=== PATIENT | female | born 1940 ===

== ENCOUNTER 2025-02-28 15:20 | Inpatient (IN) | payer MEDICARE, OTHER, SELFPAY ==
[2025-02-28] VITALS (11 sets, daily range): BP systolic 101–141; BP diastolic 41–73; BMI 36.3
--- NOTE | 2025-02-28 12:37 | ED.GENMED ---
History of Present Illness
<Flora Rivas PA-C - Last Filed: 02/28/25 18:18>
General
Chief Complaint: Heart Rate Problem
Source: patient and family
Exam Limitations: dementia
Time Seen by Provider: 02/28/25 12:27
Nursing documentation reviewed up to this point in time: agreed with
History of Present Illness
History of Present Illness:
Patient is an 84-year-old female with history of brain CA, epilepsy who presents to the emergency department for pacemaker placement. Patient follows with cardiology at [facility] where she has been wearing a Holter monitor given recent fatigue.
Apparently holter monitor revealed a 30 second sinus pause. It is believed that this occurred while patient was sleeping. Patient was referred to the emergency department by cardiology, Dr. Spicer for pacemaker placement.
Patient denies any chest pain or shortness of breath. She has not had any syncopal events. Her main complaint is significant fatigue.
Patient has history of epilepsy and is compliant with Keppra.
Patient is German-speaking however daughter is assisting with translation.
Review of Systems
<Flora Rivas PA-C - Last Filed: 02/28/25 18:18>
Review of Systems
Allergies reviewed?: Yes
All Other Systems: ROS reviewed and negative except as documented in HPI and ROS
Phy Exam
<Flora Rivas PA-C - Last Filed: 02/28/25 18:18>
Physical Exam
Physical Exam:
Vitals: Bradycardic. Otherwise stable vital signs. Afebrile
General: Patient is well appearing, no acute distress
Skin: Warm and dry, no rashes or lesions
Head: Normocephalic, atraumatic
Eyes: Sclera nonicteric. .
Throat: Protecting airway
Neck: Normal ROM, no cervical spine tenderness, no meningismus
Cardiac: bradycardic, normal rhythm, no murmurs. No sinus pause noted on monitor in ED.
Pulm: Normal respiratory effort, no wheezes, rales, rhonchi heard on exam
Abdomen: No abdominal tenderness.
Extremities: No evidence of cyanosis or edema. 2+ palpable and equal distal pulses bilaterally
Neuro: AAOx3. Grossly intact.
Psychiatric: Normal affect.
Course
<Flora Rivas PA-C - Last Filed: 02/28/25 18:18>
Orders/Labs/Results
Orders:
Orders
02/28/25 12:09
EKG [Electrocardiogram (*1)] Urgent
Reason for Study: Bradycardia / Tachycardia
EKG- Treatment ONCE
02/28/25 13:02
Complete Blood Count/With Diff Urgent
Comprehensive Metabolic Panel Urgent
Magnesium Urgent
PTT Urgent
Prothrombin Time Urgent
TSH Reflex To Free T4 Urgent
02/28/25 14:07
Admit/Transfer Patient As Directed
Co-Sign Provider:
Level of Care: Inpatient admission
Assign to:: IVU
Physician / Group: htay
Diagnosis: 30 secs pause on Holter - asymptomatic Sinus lorenzo otherwise nl EKG
Reason for Hospitalization: 30 secs pause on Holter - asymptomatic
Sinus lorenzo otherwise nl EKG
Expected length of stay greater than two midnights?: Yes
ELOS- Estimated Length of Stay in days: 2
I certify the patient meets the requirements for IP care: Yes
02/28/25 14:08
Code Status As Directed
Resuscitation Status: Full Code
Abnormal Lab Results
02/28/25
13:02
MCHC 32.2 L g/dL
(33.0-37.0)
Carbon Dioxide 32 H mmol/L
(22-30)
Total Protein 5.7 L g/dl
(6.3-8.2)
02/28/25 13:02
02/28/25 13:02
Vital Signs
Initial and Last Documented VS:
Initial Vital Signs
Temp Pulse Resp BP Pulse Ox
97.5 F 53 18 126/57 96
02/28/25 12:15 02/28/25 12:15 02/28/25 12:15 02/28/25 12:15 02/28/25 12:15
Last Documented Vital Signs
Temp Pulse Resp BP Pulse Ox
97.5 F 50 17 141/73 98
02/28/25 12:15 02/28/25 15:00 02/28/25 15:00 02/28/25 15:00 02/28/25 15:00
<Shahram Bhakta, DO - Last Filed: 02/28/25 12:52>
Orders/Labs/Results
Orders:
Orders
02/28/25 12:09
EKG [Electrocardiogram (*1)] Urgent
Reason for Study: Bradycardia / Tachycardia
EKG- Treatment ONCE
02/28/25 13:02
Complete Blood Count/With Diff Urgent
Comprehensive Metabolic Panel Urgent
Magnesium Urgent
PTT Urgent
Prothrombin Time Urgent
TSH Reflex To Free T4 Urgent
02/28/25 14:07
Admit/Transfer Patient As Directed
Co-Sign Provider:
Level of Care: Inpatient admission
Assign to:: IVU
Physician / Group: htay
Diagnosis: 30 secs pause on Holter - asymptomatic Sinus lorenzo otherwise nl EKG
Reason for Hospitalization: 30 secs pause on Holter - asymptomatic
Sinus lorenzo otherwise nl EKG
Expected length of stay greater than two midnights?: Yes
ELOS- Estimated Length of Stay in days: 2
I certify the patient meets the requirements for IP care: Yes
02/28/25 14:08
Code Status As Directed
Resuscitation Status: Full Code
Abnormal Lab Results
02/28/25
13:02
MCHC 32.2 L g/dL
(33.0-37.0)
Carbon Dioxide 32 H mmol/L
(22-30)
Total Protein 5.7 L g/dl
(6.3-8.2)
02/28/25 13:02
02/28/25 13:02
Vital Signs
Initial and Last Documented VS:
Initial Vital Signs
Temp Pulse Resp BP Pulse Ox
97.5 F 53 18 126/57 96
02/28/25 12:15 02/28/25 12:15 02/28/25 12:15 02/28/25 12:15 02/28/25 12:15
Last Documented Vital Signs
Temp Pulse Resp BP Pulse Ox
97.5 F 50 17 141/73 98
02/28/25 12:15 02/28/25 15:00 02/28/25 15:00 02/28/25 15:00 02/28/25 15:00
<Flora Rivas PA-C - Last Filed: 02/28/25 18:18>
MDM/Problems Addressed
Differential Diagnosis Includes:
Not limited to: Sinus arrhythmia, sinus pause, heart block, hypothyroidism, electrolyte abnormality, etc.
MDM/Problems Addressed:
84-year-old female presenting with significant fatigue as well as sinus pause seen on outpatient Holter monitoring. She was referred for pacemaker placement. No chest pain, shortness of breath, dizziness, or syncopal episodes. Vitals and exam as
above.
ED plan: Check basic labs, EKG, place pads. Will discuss with cardiology.
Update: EKG with sinus bradycardia and no acute ischemic changes. Labs unremarkable. Case discussed with cardiology. Will admit to hospitalist service with cardiology consult for pacemaker placement either today or tomorrow. Patient accepted to
hospitalist service in stable condition.
Chronic conditions affecting care:
Epilepsy
Acute Exacerbation and/or Progression of Chronic Illness:
N/A
<Flora Rivas PA-C - Last Filed: 02/28/25 18:18>
*Pulse Oximetry
SaO2: 96
Oxygen Mode of Delivery: Room air
Patient hypoxic: no
*EKG
Interpreted by ED Provider?: Yes
EKG Intrepretation Date: 02/28/25
Interpretation: normal
Comparison EKG: no comparison EKG present
Heart Rate: 58
Rate: bradycardiac
Rhythm: sinus
[place]: normal axis
Interval: normal QT interval
QRS Pattern: normal QRS
Ischemia: no ischemia
*Saddle Stitch Operator Interpretation
Rate: bradycardiac
Interpretation: abnormal
Heart Rate: 50
Rhythm: sinus
*Critical Care Note
Total Time (30-74mins, 75-104mins- exclusive of procedures): Not Applicable
<Flora Rivas PA-C - Last Filed: 02/28/25 18:18>
Patient Management
Discussion with other providers: Hospitalist and Painter Supervisor (Case discussed with cardiology)
Escalation/DeEscalation of care consider admission/obs:
Admit to hospitalist service with cardiology consult for pacemaker placement
ED Attending Note
<Flora Rivas PA-C - Last Filed: 02/28/25 18:18>
-
Portions of this chart may have been created with voice recognition software.� Occasional wrong word or��sound alike� substitutions may have occurred due to the inherent limitations of voice recognition software.
<Shahram Bhakta DO - Last Filed: 02/28/25 12:52>
ED Attending Note
Patient seen and examined by attending physician: Yes
I performed the substantive portion of visit, reviewed & personally made and approve the management plan that is documented in note by myself or JANNA.: Yes
ED Attending Note:
I have seen and evaluated the patient with a [id number] encounter. I have spoken to the advance practicer provider and involved in the medical history, the physical exam, medical decision making.
Evaluation and management service: agree unless noted differently below.
Results interpretation: agree unless noted differently below.
Focused HPI: 84-year-old female sent in from her doctor's office when Holter monitor recorded significant pauses. Cardiology aware
Physical exam: Sitting in bed comfortably. Bradycardic
Medical Decision Making: ZOLL pads placed. Left cardiology evaluate for pacemaker placement
Discharge Plan
Departure
Patient Disposition: Admit
Date of Disposition: 02/28/25
Time of Disposition: 12:53
Presentation/result/management discussed w/ accepting MD/DO: Hospitalist
Discharge Problem:
Sinus pause
Interventions
Interventions:
*Risk Screen - Suicide Last Done: 02/28/25 12:20
*General Assessment Last Done: 02/28/25 13:00
*Neglect/Abuse Screening Last Done: 02/28/25 12:20
*ED- Fall Risk Assessment Last Done: 02/28/25 13:00
ED- Cardiac Assessment Last Done: 02/28/25 13:00
ED- Pulmonary Assessment Last Done: 02/28/25 13:00
[2025-02-28 13:27] LABS: Hematocrit 42.5 % (37.0-47.0); Hemoglobin 13.7 g/dL (12.0-16.0); Mean Corp Hgb Conc. 32.2 g/dL (33.0-37.0); Mean Corpuscular Volume 91.4 fL (81.0-99.0); Nucleated Red Blood Cells % 0 %; Platelet Count 149 10^3/uL (130-400); Red Cell Dist. Width 12.9 % (11.5-14.5)
[2025-02-28 13:40] LABS: INR 1.03; PT 14.0 Sec (11.4-14.6)
[2025-02-28 13:41] LABS: APTT 26.2 Sec (23.4-35.0)
[2025-02-28 13:43] LABS: ALT (SGPT) 14 U/L (0-35); AST (SGOT) 21 U/L (14-36); Albumin 3.6 g/dl (3.5-5.0); Alkaline Phosphatase 62 U/L (38-126); Blood Urea Nitrogen 16 mg/dl (7-17); Calcium 8.9 mg/dl (8.4-10.2); Carbon Dioxide 32 mmol/L (22-30); Chloride 105 mmol/L (98-107); Estimated Creatinine Clearance 50 ml/min; Glucose 83 mg/dl (70-99); Magnesium 2.2 mg/dl (1.6-2.3); Potassium 4.5 mmol/L (3.5-5.1); Sodium 139 mmol/L (135-145); Total Protein 5.7 g/dl (6.3-8.2); eGFR > 60.00
--- NOTE | 2025-02-28 13:50 | CON.CAR ---
Addendum entered and electronically signed by Juancarlos Spicer MD 02/28/25 17:01:
I specifically discussed with the daughter a left-sided pacemaker implantation as she has had right sided breast cancer and brain cancer. She did not have a port in the left side. As such as she is right-handed we will place a left-sided
dual-chamber pacemaker. Discussed 1000 risk of LA stroke and a 1% risk of pneumothorax tamponade infection or bleeding. I did time to answer all of daughter's questions. As the patient is Albanian only speaking we will need language line
tomorrow for informed consent. The daughter told me that she can perform as the claims manager.
Addendum entered and electronically signed by Juancarlos Spicer MD 02/28/25 17:00:
Patient seen and examined
Discussed with Dr. Aburto by text
Agree with VP PURCHASING note and assessment
Agree with VP PURCHASING plan
Her longest pause of 30 seconds occurred 2 weeks ago on 02/10/2025 associated with presumed loss of consciousness
Her daughter is both Albanian and Tanzanian speaking and the patient is Albanian only speaking.
I communicated to the daughter details of pacemaker implantation and timing either with my colleagues Dr. Lerma or Dr. Boyer tomorrow. We will feed her this afternoon and keep her n.p.o. after midnight for pacemaker implantation tomorrow.
Exam:
As per VP PURCHASING note
Alert and x 3
JVP 6
Cor regular
Lungs clear
No extremity edema
Impression:
30 sec, 16sec, 12 sec pauses on recent holter monitor, all occurred on 02/10/2025 in am
h/o syncope
brain cancer s/p tumor resection 02/2023 at [facility]
R breast cancer diagnosed 2023, on Tamoxifen
HTN
SOB
dizziness
dementia
seizure d/o on Keppra
Previous cardiovascular testing:
Echocardiogram 02/15/2025: Normal LV/RV size and function, LVEF 55 to 60%, mild MR
Zio monitor 02/01/2025 - 02/15/2025: Average heart rate 60 bpm, range 39 to 167 bpm. Of note, 5 pauses occurred, longest pause 33.5 seconds on 02/10/2025 at 07 56, also had 16-second pause on 02/10/2025 at 09 51, and 12-second pause on 02/10/2025 at 09
55
Monitor also with 7 beat run NSVT
Zio monitor 02/17/2024: Sinus rhythm average heart rate 62, range 41 to 158 bpm, first-degree AV block present, 14 runs of SVT longest 10 beats
Plan:
-pacemaker implantation tomorrow 03/01/2025
-NPO after MN
-admit to IVU
-keep Zoll pads in place
-echo 02/15/2025 with nl LV/RV fxn
-not on AV gloria blocking agents
-keep in bed
-continue telemetry monitoring
Original Note:
Consultation
Consultation Request
Date/Time Consultation Requested: 02/28/2025
Date/Time Consultation Performed: 02/28/2025
Requesting Provider: Flora Rivas PA-C
Performing Provider: ADEOLA Yoder for Juancarlos Spicer MD
Reason for Consultation: 30 second pause on holter monitor, pacemaker advised
Medical History
-
Chief Complaint: 30 sec pause on holter monitor
History of Present Illness:
84-year-old female referred to [facility] ED today due to recent detection of 30 second pause on 2-week Holter monitor. Patient follows with Dr. Noé Aburto, convenience recycle center tech at [facility]. She was seen in January 2025 with
concerns for dizziness, fatigue, and hypotension. 2-week Holter monitor and echocardiogram were ordered. Patient received call from Dr. Aburto today advising that she had 30 second pause on monitor and advised to come to ED for pacemaker
implantation. Patient does not speak Tanzanian and is accompanied by her daughter who translates. Monitor was placed 02/01/2025 and has been off for at least a week.
Patient denies syncope while wearing the monitor. Pt/daughter told that pause occurred at 715 am while pt was asleep.
Review of Zio monitor results shows a 33.5-second pause at 0756 on 02/10/2025 and 16-second pause on at 0955.
She has a past medical history of brain tumor status post surgery in 2022, seizures, breast cancer, hypertension, syncope.
She has had syncope in the past prior to being diagnosed with a brain tumor in 2022. She was operated on at [facility] and her daughter tells me the tumor was malignant but had not spread and she did not require radiation or chemo.
She had 4 syncopal episodes since the brain surgery, last in August 2024. She was evaluated by neurology and had an EEG and brain MRI. There was consideration for a Linq device if syncope not thought to be neurologic in origin. She was
evaluated by neurology at [facility] and antiseizure medications were increased. She has not had loss of consciousness since increase in medications.
She has been subsequently diagnosed with right-sided breast cancer about a year ago and is on hormonal therapy with tamoxifen. She has not required chemo, radiation, or mastectomy.
Patient denies shortness of breath, chest pain, palpitations, edema, PND, orthopnea. No falls or recent syncopal episodes.
ED evaluation: EKG sinus bradycardia 50 bpm, QTc 422 ms
Telemetry personally reviewed: Sinus bradycardia 50s
Labs: BUN/creatinine 16/0.8, NA 139, K4.5, mag 2.2, glucose 83, hemoglobin 13.7, platelets 149, WBC 4.9
Past Medical History
Past Medical History: Other (As above)
Past Surgical History: Other (Brain tumor resection 03/11/2023 at [facility])
Social History
Tobacco: Non-Smoker
Alcohol: None
Drug: None
Living: With Family
Family History
Family History: Other (Mother with hypertension, heart disease, cancer)
Allergies / Home Medications
Allergy/AdvReac Type Severity Reaction Status Date / Time
No Known Allergies Allergy Verified 02/28/25 12:18
�Medication �Instructions �Recorded �Confirmed �Type
cholecalciferol (vitamin D3) 25 25 mcg PO DAILY 02/28/25 02/28/25 History
mcg (1,000 unit) tablet (Vitamin
D3)
donepezil 10 mg tablet 10 mg PO HS 02/28/25 02/28/25 History
furosemide 40 mg tablet (Lasix) 40 mg PO DAILY 02/28/25 02/28/25 History
levetiracetam 750 mg tablet 750 mg PO DAILY 02/28/25 02/28/25 History
(Keppra)
levocetirizine 5 mg tablet (Xyzal) 5 mg PO DAILY 02/28/25 02/28/25 History
levothyroxine 50 mcg tablet 50 mcg PO DAILY 02/28/25 02/28/25 History
(Synthroid)
potassium chloride 20 mEq 20 meq PO DAILY 02/28/25 02/28/25 History
tablet,extended release
tamoxifen 20 mg tablet 20 mg PO DAILY 02/28/25 02/28/25 History
Review of Systems
-
Unable to obtain full review of systems at this time due to: Dementia
History Source: Family
All other systems: Negative unless noted
Physical Exam
Vital Signs
Temp Pulse Resp BP Pulse Ox
97.5 F 53 18 126/57 96
02/28/25 12:15 02/28/25 12:15 02/28/25 12:15 02/28/25 12:15 02/28/25 12:38
GEN: No distress, awake, Ox3
HEENT: supple, anicteric, mmm
LUNGS: CTA, no wheezes/rales
CV: Reg, S1/S2, no murmur
ABD: soft, BS+, NT/ND
EXT: No edema
NEURO: Gross non-focal
SKIN: No rash
Lab Results
02/28/25 13:02
02/28/25 13:02
Impression / Plan
-
Primary care physician: Morgan Rojo
Primary convenience recycle center tech: Noé Aburto
Impression:
30 sec, 16sec, 12 sec pauses on recent holter monitor, all occurred on 02/10/2025 in am
h/o syncope
brain cancer s/p tumor resection 02/2023 at [facility]
R breast cancer diagnosed 2023, on Tamoxifen
HTN
SOB
dizziness
dementia
seizure d/o on Keppra
Previous cardiovascular testing:
Echocardiogram 02/15/2025: Normal LV/RV size and function, LVEF 55 to 60%, mild MR
Zio monitor 02/01/2025 - 02/15/2025: Average heart rate 60 bpm, range 39 to 167 bpm. Of note, 5 pauses occurred, longest pause 33.5 seconds on 02/10/2025 at 07 56, also had 16-second pause on 02/10/2025 at 09 51, and 12-second pause on 02/10/2025 at 09
55
Monitor also with 7 beat run NSVT
Zio monitor 02/17/2024: Sinus rhythm average heart rate 62, range 41 to 158 bpm, first-degree AV block present, 14 runs of SVT longest 10 beats
Plan:
-pacemaker implantation tomorrow 03/01/2025
-NPO after MN
-admit to IVU
-keep Zoll pads in place
-echo 02/15/2025 with nl LV/RV fxn
-not on AV gloria blocking agents
-keep in bed
-continue telemetry monitoring
Data Reviewed
-
EKG: Tracing Personally Visualized and interpreted
Medical Tests (Nuc Med, Echo etc): Image Personally Visualized and interpreted
Old Records: Requested and Reviewed
--- NOTE | 2025-02-28 13:55 | HPS.HSE ---
Family Physician
-
Family Physician: Morgan Rojo
Chief Complaint
-
30 sec pauses on Holter
History of Present Illness
HPI
84F Taiwanese speaker HX Dementia, HX Brain tumor , Sz disorder , on Holter for 2 weeks, sent in by Dr cooper Heat Sealing Machine Operator ( P card is at [facility]) due to 30 pause seen on holter monitor - sent for pacemaker placement.
- denied complaints
- 02/15/25 Nl LVEF, No significant valvular abnormality.
Medical History
Past Medical History
Past Medical History: Reports Dementia, HTN, Hypothyroidism, Seizures and Other (HX Brain tumor )
Past Surgical History: Reports Other ( dementia )
Social History
Unable to obtain full social history at this time due to: Dementia
Family History
Family History: Not pertinent
Allergies / Home Medications
Allergies reflects when Allergies were last updated in [facility].
Home Medications with original date entered in [facility]
Allergy/Medication List:
Allergies
Allergy/AdvReac Type Severity Reaction Status Date / Time
No Known Allergies Allergy Verified 02/28/25 12:18
Home Medications
cholecalciferol (vitamin D3) 25 mcg (1,000 unit) tablet (Vitamin D3) 25 mcg PO DAILY 02/28/25
donepezil 10 mg tablet 10 mg PO HS 02/28/25
furosemide 40 mg tablet (Lasix) 40 mg PO DAILY 02/28/25
levetiracetam 750 mg tablet (Keppra) 750 mg PO DAILY 02/28/25
levocetirizine 5 mg tablet (Xyzal) 5 mg PO DAILY 02/28/25
levothyroxine 50 mcg tablet (Synthroid) 50 mcg PO DAILY 02/28/25
potassium chloride 20 mEq tablet,extended release 20 meq PO DAILY 02/28/25
tamoxifen 20 mg tablet 20 mg PO DAILY 02/28/25
Review of Systems
-
Constitutional: Reports No Symptoms
EENT: Reports No Symptoms
Respiratory: Reports No Symptoms
Cardiac: Reports See HPI
Abdomen/GI: Reports No Symptoms
: Reports No Symptoms
Musculoskeletal: Reports No Symptoms
Skin: Reports No Symptoms
Neurological: Reports No Symptoms
Endocrine: Reports No Symptoms
Hematologic/Lymphatic: Reports No Symptoms
Psych: Reports No Symptoms
Physical Exam
Vital Signs
Vital Signs
Temp Pulse Resp BP Pulse Ox
97.5 F 53 18 126/57 96
02/28/25 12:15 02/28/25 12:15 02/28/25 12:15 02/28/25 12:15 02/28/25 12:38
Physical Exam
General: Conversant
HEENT: NormoCephalic and Anicteric
Respiratory: Clear
Cardiac: S1/S2 and Bradycardia
Breast: Deferred by me
GI: Soft, Non Tender and Non Distended
Rectal: Deferred by Provider
Genito-urinary: Deferred by me
Musculoskeletal: No Edema
Skin: Warm and Dry
Neuro: Awake and Alert
Laboratory Results
-
02/28/25 13:02
02/28/25 13:02
Laboratory Results
PT 14.0 Sec (11.4-14.6) 02/28/25 13:02
INR 1.03 02/28/25 13:02
APTT 26.2 Sec (23.4-35.0) 02/28/25 13:02
Total Bilirubin 0.8 mg/dl (0.2-1.3) 02/28/25 13:02
AST 21 U/L (14-36) 02/28/25 13:02
ALT 14 U/L (0-35) 02/28/25 13:02
Alkaline Phosphatase 62 U/L (38-126) 02/28/25 13:02
Data Reviewed
-
Medical Tests (Nuc Med, Echo, EKG etc): Report Reviewed by me
Lab Data: Labs Reviewed by me
Impression/Plan
-
Vital Signs
Temp Pulse Resp BP Pulse Ox
97.5 F 53 18 126/57 96
02/28/25 12:15 02/28/25 12:15 02/28/25 12:15 02/28/25 12:15 02/28/25 12:38
Abnormal Lab Results
02/28/25
13:02
MCHC 32.2 L
Carbon Dioxide 32 H
Total Protein 5.7 L
Relevant Data
EKG
SINUS BRADYCARDIA
OTHERWISE NORMAL ECG
NO PREVIOUS ECGS AVAILABLE
02/15/25 TTE
Normal LV and RV size and function.
No significant valvular abnormality.
NO PRIOR hospitalist admission:
ASSESSMENT & PLAN
30 secs pause on Holter - asymptomatic
Sinus lorenzo otherwise nl EKG
02/15/25 TTE- Normal LV and RV size and function.
Hemodynamically stable
- For PPM
- NPO after MN
- IVU monitor
- fall precaution
- [facility] card consult
Hypothyroid
- check TSH
- c/w OP LT4
Benign HTN
- c/w PRODUCTION ESTIMATOR Frusemide
HX Brain Tumor
SZ disorder ?
- c/w PRODUCTION ESTIMATOR Keppra
Dementia
Taiwanese speaker
Language barrier
- at risk for delirium
- On Donepezil
DVT Px: SCD
Full Code:
IVU
[2025-02-28] MEDS: ARICEPT 10 MG PO (21:54)
[2025-03-01] VITALS (11 sets, daily range): BP systolic 118–143; BP diastolic 56–73; BMI 35.4
--- NOTE | 2025-03-01 03:23 | PTCARENOTE ---
Pt admitted to 2251 from ED at 2130, confused, Marshallese speaking, daughter staying with pt overnight. Pt SB on the monitor, HR 45-60's. denies CP, dizziness or SOB. BP stable. Bed alarm in place. Call helm within reach. Pt oriented to unit and call
light. Admission questioners completed.
[2025-03-01 05:04] LABS: Hematocrit 41.7 % (37.0-47.0); Hemoglobin 13.9 g/dL (12.0-16.0); Mean Corp Hgb Conc. 33.3 g/dL (33.0-37.0); Mean Corpuscular Volume 88.9 fL (81.0-99.0); Platelet Count 142 10^3/uL (130-400); Red Cell Dist. Width 12.7 % (11.5-14.5)
[2025-03-01 05:28] LABS: Blood Urea Nitrogen 16 mg/dl (7-17); Calcium 8.5 mg/dl (8.4-10.2); Carbon Dioxide 27 mmol/L (22-30); Chloride 108 mmol/L (98-107); Estimated Creatinine Clearance 58 ml/min; Glucose 84 mg/dl (70-99); INR 1.06; PT 14.3 Sec (11.4-14.6); Potassium 4.3 mmol/L (3.5-5.1); Sodium 139 mmol/L (135-145); eGFR > 60.00
[2025-03-01] MEDS: SYNTHROID 50 MCG PO (06:50)
[2025-03-01] MEDS: KEPPRA 750 MG PO (07:47)
[2025-03-01] MEDS: KCL 20 MEQ PO (07:48)
[2025-03-01] MEDS: NOLVADEX 20 MG PO (07:48)
--- NOTE | 2025-03-01 09:08 | PTCARENOTE ---
pt off unit for ppm. daughter notified of plan of care and verbalized understanding.
--- NOTE | 2025-03-01 11:09 | ITS.CL.PACE ---
Research Program Internship - Pacemaker Implant
Pacemaker Implant
Procedure Report:
Date of Procedure: March 01, 2025.
Procedure: Pacemaker Implantation. Left upper extremity venogram.
Indication: The pacemaker is for the treatment of nonreversible symptomatic bradycardia due to sinus node dysfunction.
Performing physician: Efren Lerma MD, [facility].
Implants:
Pulse Generator: Medtronic; Model# [id number]; Serial# [id number].
RA Lead: Medtronic; Model# 5076-45cm; Serial# [id number].
RV Lead: Medtronic; Model# 3830-69cm; Serial# [id number].
Technique: A time out was performed. 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 The patient has had right sided breast cancer
and I felt the stenosis would accommodate 2 pacing leads. Collateral flow was already established. I decided to proceed with a left sided implant. The procedure site was identified. The patient was anesthetized by the anesthesia service.
Preoperative cefazolin was administered. The patient was prepped and draped in the usual fashion. Local anesthetic was applied to the left prepectoral subcutaneous tissue. A 3 inch incision was made along the left deltopectoral groove. Dissection
was carried to the fascia. The left cephalic vein was not identified. The left axillary vein was accessed with a single percutaneous micro- punctures without difficulty. A glide type wire was required to cross the stenosis in the left subclavian
vein. The vein was dilated with a 9 F introducer but I encountered no resistance at the stenosis site. A 7 Fr introducer was placed to allow two standard 0.35 J wires to be advanced. The leads were introduced with hemostatic peel away introducer
sheaths. The RV lead was placed using utilizing the [employer] His delivery catheter ([id number]) that was advanced to the left bundle area as confirmed by fluoroscopy in the RAYMOND and FIGUEROA projections. The lead tip was advanced. PVC morphology was
reviewed. When a satisfactory location was identified (W pattern observed) the lead was screwed into position with serial turns. Septal engagement was confirmed with gentle torque applied to the guide sheath. After each series of turns (2-3)
unipolar sensed morphology and impedance, and paced morphology of V1 was analyzed. The lead was further advanced until satisfactory morphology and electrical characteristics were confirmed. The RV lead was placed in the second location evaluated.
The long guiding sheath was cut and removed from the RV without change in lead position, impedance, sensing, or capture. The ventricular lead was secured to the pectoralis muscle and fascia with two 0-silk sutures. The atrial lead was placed in the
right atrial appendage. 8 volt pacing from each lead did not capture the diaphragm. The atrial leads was secured to the pectoralis muscle and fascia. A subcutaneous pocket was created with Bovie cautery. Hemostasis was excellent. The leads were
appropriately attached to the device. The pocket was irrigated with antibiotic solution. The device and leads were placed in the pocket. The incision was closed in three layers with absorbable suture. Steri-strips and a silver impregnated dressing
were placed. Estimated blood loss was 10 ml. There were no complications. Fluoroscopy time 4.8 minutes and DAP 4.53 GyCM2. The device was then interrogated after skin closure.
Lead Analysis:
RA lead: P: 5.5 mV; Threshold: 0.5 V @ 0.4 ms; Impedance: 532 ohms.
RV lead (bipolar): R: 8.9 mV; Threshold: 0.5 V @ 0.4 ms; Impedance: 703 ohms.
Paced QRS characteristics: V1 has QR morphology and measures 136 ms in duration, LVAT (stim to peak V5/V6) is 60 ms, and R peak V1 to R peak V6 is 55 ms.
The RV lead has the same paced morphology at lower and higher outputs and in bipolar and unipolar configurations.
Final Programming: MVP (AAIR to DDDR) 60-130 bpm.
Conclusion: Uncomplicated Medtronic pacemaker implant. The pacing system is MRI conditional. The RV lead successfully provides conduction system pacing.
Recommendation: Routine post pacemaker care.
cc: Noé Aburto MD and Morgan Rojo MD.
[2025-03-01] MEDS: LASIX 40 MG PO (11:40)
[2025-03-01] MEDS: DESENEX/MITRAZOL/ZEASORB 1 APPLIC TOPICAL ×2 (11:45→20:58)
--- NOTE | 2025-03-01 12:04 | PTCARENOTE ---
Received patient from pacemaker procedure in stable condition. Dressing site clean, dry, and intact. Small amount of crepitus noted to site. + 2 left radial pulse. Left arm remains in immobilizer. Educated on importance of keeping left arm in
immobilizer. EKG completed. Grandson at bedside. Updated on plan of care. Patient remains on bedrest. Bed alarm on and audible for safety. Call helm within reach.
--- NOTE | 2025-03-01 12:33 | CM ---
Chart reviewed. Patient does not speak Amharic. 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 Patient is not current
with VN, but grandson is interested. Referral sent to [facility]. Plan is for the patient to return home with HRN. CM to follow
--- NOTE | 2025-03-01 13:43 | W.PN.HOSP.TC ---
Today's Communication/Plan
-
Assessment / Plan
Assessment / Plan
Unable to evaluate, patient unavailable off floor for procedures multiple times during the day, attempted to evaluate multiple times
Ms. Black is a 84-year-old female with a medical history of brain tumor (s/p resection 03/11/2023 at [place]), seizure disorder, right breast cancer (diagnosed 2023, on tamoxifen), HFpEF, hypothyroidism, and dementia who presented for further
evaluation of a 32nd pause seen on her outpatient Holter monitor. She has been normotensive and bradycardic on telemetry here with heart rate around 55. Her labs, including electrolytes, have been within normal limits. She has been admitted for
further evaluation and urgent PPM placement.
Sinus bradycardia with pauses:
- N.p.o. after midnight for planned PPM placement today 03/01
- Continue telemetry monitoring
- Further recommendations per cardiology
Hypothyroidism:
- Continue home Synthroid 50 mcg daily
- TSH within normal limits
HFpEF:
- Chronic, currently compensated
- Echocardiogram from 02/15/2025 shows grade 1 diastolic dysfunction
- Continue home Lasix 40 mg p.o. daily
Breast cancer:
- Diagnosed 2023
- Continue tamoxifen
Seizure disorder:
- History of brain tumor resection 03/11/2023 at [place]
- Continue Keppra 750 mg daily
DVT prophylaxis: SCDs
CODE STATUS: Full code
Total time spent on today's encounter was 45 minutes.
Anticipated Discharge: 24 - 48 hours
Subjective/Interval History
-
Date of Service: March 01, 2025
Patient went for permanent pacemaker placement this morning.
Objective Data
-
Labs:
Laboratory Results
03/01/25
04:46
WBC 5.4
Hgb 13.9
Hct 41.7
Plt Count 142
PT 14.3
INR 1.06
Sodium 139
Potassium 4.3
Chloride 108 H
Carbon Dioxide 27
BUN 16
Creatinine 0.7
Glucose 84
Calcium 8.5
Vital Signs:
Vital Signs
Temp Pulse Resp BP Pulse Ox
98.0 F 63 18 134/68 100
03/01/25 11:35 03/01/25 11:40 03/01/25 11:35 03/01/25 11:40 03/01/25 11:35
Review of Systems
-
Unable to obtain full review of systems at this time due to: Other (Patient unavailable off floor for procedures multiple times during the day)
Physical Exam
-
General: Other (Unable to evaluate, patient unavailable off floor for procedures multiple times during the day)
[2025-03-01] MEDS: ANCEF 5 IV ×2 (17:29→23:13)
--- NOTE | 2025-03-01 18:27 | PTCARENOTE ---
pt continues to be paced/ sr on the monitor, hr in the 80s, vss. pt offers no complaints at this time. ppm is cdi. pt denies pain at site. daughter and pt educated on plan of care and verbalized understanding. pt ambulated in room w/ rw and
tolerated well. bed alarm in place. call helm within reach.
[2025-03-01] MEDS: ARICEPT 10 MG PO (20:58)
[2025-03-01] MEDS: ZYRTEC 5 MG PO (20:58)
[2025-03-01] MEDS: TYLENOL 650 MG PO (23:13)
[2025-03-02 04:17] VITALS: BP 148/73
[2025-03-02 04:44] LABS: Hematocrit 43.8 % (37.0-47.0); Hemoglobin 14.1 g/dL (12.0-16.0); Mean Corp Hgb Conc. 32.2 g/dL (33.0-37.0); Mean Corpuscular Volume 89.9 fL (81.0-99.0); Platelet Count 143 10^3/uL (130-400); Red Cell Dist. Width 12.8 % (11.5-14.5)
[2025-03-02 04:49] VITALS: BMI 35.2
--- NOTE | 2025-03-02 04:51 | PTCARENOTE ---
Pt NSR with occasional APaced with HR in 60s BPM. VSS. Tylenol given for general discomfort. Left chest pacer site dsg intact with small old drainage. Pt ambulates with x 1 assist. Safety measures in place. Daughter staying overnight
[2025-03-02 05:09] LABS: Blood Urea Nitrogen 15 mg/dl (7-17); Calcium 9.0 mg/dl (8.4-10.2); Carbon Dioxide 27 mmol/L (22-30); Chloride 107 mmol/L (98-107); Estimated Creatinine Clearance 50 ml/min; Glucose 105 mg/dl (70-99); Potassium 4.0 mmol/L (3.5-5.1); Sodium 139 mmol/L (135-145); eGFR > 60.00
[2025-03-02] MEDS: SYNTHROID 50 MCG PO (06:44)
--- NOTE | 2025-03-02 07:14 | W.PN.CARDCBS ---
Addendum entered and electronically signed by Ethan Chang MD 03/02/25 10:03:
I saw and examined the patient.
The COTTAGE PARENT or PA's note was reviewed and I agree with the note.
Comment: General: Well developed, well nourished in NAD.
Neck: Supple, no JVD, HJR, carotids +2 B/L, no bruits bilaterally.
Heart: Non displaced PMI, RRR, no murmurs, No S3, S4, no rubs.
Lungs: Clear to auscultation bilaterally, no wheeze, rhonchi, rubs bilaterally,
normal expiratory phase.
Skin: Left pacer site okay
Extremities: No clubbing, cyanosis or edema bilaterally.
Neuro: Grossly nonfocal, awake, alert and oriented x3.
Stable cardiology status for discharge. Follow-up has been arranged. Discussed with daughter at bedside and nursing as well as primary service
Original Note:
Today's Communication / Plan
-
Stable for discharge status post new permanent pacemaker
- Follow-up arranged at [facility] device clinic
- Follow-up with primary building admin Dr. Aburto
Impression / Plan
-
Primary care physician: Morgan Rojo
Primary building admin: Noé Aburto
Impression:
30 sec, 16sec, 12 sec pauses on recent holter monitor, all occurred on 02/10/2025 in am
h/o syncope
-s/p Dual-chamber Medtronic pacemaker 03/01/2025
brain cancer s/p tumor resection 02/2023 at [facility]
R breast cancer diagnosed 2023, on Tamoxifen
HTN
SOB
dizziness
dementia
seizure d/o on Keppra
Previous cardiovascular testing:
Echocardiogram 02/15/2025: Normal LV/RV size and function, LVEF 55 to 60%, mild MR
Zio monitor 02/01/2025 - 02/15/2025: Average heart rate 60 bpm, range 39 to 167 bpm. Of note, 5 pauses occurred, longest pause 33.5 seconds on 02/10/2025 at 07 56, also had 16-second pause on 02/10/2025 at 09 51, and 12-second pause on 02/10/2025 at 09
55
Monitor also with 7 beat run NSVT
Zio monitor 02/17/2024: Sinus rhythm average heart rate 62, range 41 to 158 bpm, first-degree AV block present, 14 runs of SVT longest 10 beats
Plan:
-Status post left-sided dual-chamber Medtronic pacemaker 03/01/2025 for sinus pauses/nonreversible symptomatic bradycardia
-Post device 12-lead EKG atrial paced
-echo 02/15/2025 with nl LV/RV fxn
-not on AV gloria blocking agents
-Resume outpatient meds.
- Cardiology follow-up arranged in device clinic at [facility], appointment 03/11/2025
- Reviewed activity restrictions status post new device
Progress Note - [place]
Subjective
Date of Service: March 02, 2025
Status post dual-chamber pacemaker
- Doing well, denies incisional discomfort
- No chest pain, shortness of breath
Objective
Labs:
03/02/25 04:29
03/02/25 04:29
Labs
Hgb 14.1 g/dL (12.0-16.0) 03/02/25 04:29
Hct 43.8 % (37.0-47.0) 03/02/25 04:29
Plt Count 143 10^3/uL (130-400) 03/02/25 04:29
PT 14.3 Sec (11.4-14.6) 03/01/25 04:46
INR 1.06 03/01/25 04:46
APTT 26.2 Sec (23.4-35.0) 02/28/25 13:02
Sodium 139 mmol/L (135-145) 03/02/25 04:29
Potassium 4.0 mmol/L (3.5-5.1) 03/02/25 04:29
BUN 15 mg/dl (7-17) 03/02/25 04:29
Creatinine 0.8 mg/dL (0.6-1.0) 03/02/25 04:29
Glucose 105 mg/dl (70-99) H 03/02/25 04:29
Vital Signs and I&O:
Vital Signs
Temp Pulse Resp BP Pulse Ox
99.2 F 60 16 148/73 95
03/01/25 23:09 03/02/25 06:00 03/01/25 23:09 03/02/25 04:17 03/01/25 23:09
Vital Signs
Temp Pulse Resp BP Pulse Ox
99.2 F 60 16 148/73 95
03/01/25 23:09 03/02/25 06:00 03/01/25 23:09 03/02/25 04:17 03/01/25 23:09
Intake & Output
02/28/25 03/01/25 03/02/25 03/03/25
06:59 06:59 06:59 06:59
Intake Total 150 / 150
Balance 150 / 150
Physical Exam
Physical Exam
GEN: No distress, awake, Ox3
HEENT: supple, anicteric, mmm
LUNGS: CTA, no wheezes/rales
CV: Reg, S1/S2, 1/6 syst LSB, no murmur
ABD: soft, BS+, NT/ND
EXT: No edema
NEURO: Gross non-focal
SKIN: Left anterior chest wall pacemaker incision covered with dressing, small amount of blood spotting under dressing, no hematoma
[2025-03-02 07:44] VITALS: BP 134/66
[2025-03-02] MEDS: LASIX 40 MG PO (09:02)
[2025-03-02] MEDS: DESENEX/MITRAZOL/ZEASORB 1 APPLIC TOPICAL (09:02)
[2025-03-02] MEDS: KEPPRA 750 MG PO (09:03)
[2025-03-02] MEDS: NOLVADEX 20 MG PO (09:03)
[2025-03-02] MEDS: KCL 20 MEQ PO (09:04)
--- NOTE | 2025-03-02 09:43 | W.DCSUMMARY ---
Discharge Summary
Discharge Data
Date of Admission: 02/28/25
Date of Discharge: 03/02/25
Total time spent discharging patient (in min): 48
-
Pending Results: No
Hospital Course
Ms. Black is a 84-year-old female with a medical history of brain tumor (s/p resection 03/11/2023 at [place]), seizure disorder, right breast cancer (diagnosed 2023, on tamoxifen), HFpEF, hypothyroidism, and dementia who presented for further
evaluation of a 30 second pause seen on her outpatient Holter monitor. She has been normotensive and bradycardic on telemetry here with heart rate around 55. Her labs, including electrolytes, have been within normal limits. She was admitted for
further evaluation and urgent PPM placement.
She underwent permanent pacemaker placement 03/01 (left-sided dual-chamber Medtronic) and tolerated the procedure well. Her heart rate has been consistently atrial paced at 60 bpm since the procedure. She is not currently on AV gloria blocking
agents. She feels well and appears clinically stable. She will be discharged to home with close outpatient cardiology follow-up.
General: No Apparent Distress, Comfortable and Conversant
HEENT: NormoCephalic, Moist mucous membranes, Atraumatic
Respiratory: Clear and Non Labored Respirations
Cardiac: S1/S2, atrial paced rhythm with heart rate 60
GI: Soft, Non Tender, Non Distended and Normal Bowel Sounds
Musculoskeletal: No Edema, no deformity, left chest pacemaker insertion site with dressing in place and mild strikethrough
: NO Barba
Neuro: Awake, Alert, Nonfocal/grossly intact
Psych: Calm and cooperative
Discharge Plan
-
Patient Disposition: Home (Routine Discharge)
Discharge Diagnosis/Procedures: Heart block, s/p pacemaker implant
Driving Restrictions: No driving for 1 week
Bathing Restrictions: OK to Shower
Activity Restrictions/Additional Instructions:
Ms. Black is a 84-year-old female with a medical history of brain tumor (s/p resection 03/11/2023 at [place]), seizure disorder, right breast cancer (diagnosed 2023, on tamoxifen), HFpEF, hypothyroidism, and dementia who presented for further
evaluation of a 30 second pause seen on her outpatient Holter monitor. She has been normotensive and bradycardic on telemetry here with heart rate around 55. Her labs, including electrolytes, have been within normal limits. She was admitted for
further evaluation and urgent PPM placement.
She underwent permanent pacemaker placement 03/01 (left-sided dual-chamber Medtronic) and tolerated the procedure well. Her heart rate has been consistently atrial paced at 60 bpm since the procedure. She is not currently on AV gloria blocking
agents. She feels well and appears clinically stable. She will be discharged to home with close outpatient cardiology follow-up.
Stand Alone Forms: [facility] - Implanted Device
Referrals:
[email or web address]- [facility] [Provider Group] - 03/11/25 11:20 am
Referral Note: Post device incision check appointment
[facility] [Outside]
Referral Note: fax [phone]
Morgan Rojo MD [Family Provider, Internal Medicine]
Noé Aburto MD [Active, Cardiology]
Prescriptions:
Continued
furosemide [Lasix] 40 mg Tablet
40 mg PO DAILY
donepezil 10 mg Tablet
10 mg PO HS
levothyroxine [Synthroid] 50 mcg Tablet
50 mcg PO DAILY
levetiracetam [Keppra] 750 mg Tablet
750 mg PO DAILY
tamoxifen 20 mg Tablet
20 mg PO DAILY
cholecalciferol (vitamin D3) [Vitamin D3] 25 mcg (1,000 unit) Tablet
25 mcg PO DAILY
levocetirizine [Xyzal] 5 mg Tablet
5 mg PO DAILY
potassium chloride 20 mEq Tablet Extended Release
20 meq PO DAILY
Discharge Orders:
Discharge Patient (As Directed); Ordered 03/02/25
Ordered By: Michoacano Myers
Care Plan Goals
Care Plan Goals:
Problem: Readiness for enhanced knowledge related to diagnosis and treatment plan
Goal: Understand your diagnosis and treatment plan needs, including medications if applicable.
Instructions: Know your diagnosis, underlying causes and treatment plan options, including medications if applicable. Consult with your health care team to learn about your diagnosis and treatment plan, including medications if applicable.
Discharge Date and Time
Print Language: Stateless
--- NOTE | 2025-03-02 11:25 | PTCARENOTE ---
d/c instructions reviewed w/ daughter and pt using hoisting engine operator. pt verbalized understanding. ivx2 and tele removed. ppm site unchanged from previous site old drainage. reviewed restrictions with daughter and pt. pt left via wheelchair w/ belongings
from room and d/c instructions.
== END 2025-03-02 11:26 | disposition home health service (06) | DRG 243 ==
LOC: IVU 15:20
PROVIDERS: Internal Medicine Cardiovascular Disease; Nurse Practitioner; Physician Assistant; ADMITTING PHYSICIAN Internal Medicine; ATTENDING PHYSICIAN Internal Medicine; CONSULT PHYSICIAN Internal Medicine Cardiovascular Disease; EMERGENCY PHYSICIAN Student in an Organized Health Care Education/Training Program; FAMILY PHYSICIAN Internal Medicine
PROC: 02H63JZ Insertion of Pacemaker Lead into Right Atrium, Percutaneous Approach (ICD-10-PCS; 2025-03-01)
PROC: 0JH606Z Insertion of Pacemaker, Dual Chamber into Chest Subcutaneous Tissue and Fascia, Open Approach (ICD-10-PCS; 2025-03-01)
PROC: 02HK3JZ Insertion of Pacemaker Lead into Right Ventricle, Percutaneous Approach (ICD-10-PCS; 2025-03-01)
DX: I49.5 Sick sinus syndrome (principal); I47.20 Ventricular tachycardia, unspecified; I50.32 Chronic diastolic (congestive) heart failure; Z85.841 Personal history of malignant neoplasm of brain; C50.911 Malignant neoplasm of unspecified site of right female breast; E03.9 Hypothyroidism, unspecified; G40.909 Epilepsy, unspecified, not intractable, without status epilepticus; F03.90 Unspecified dementia, unspecified severity, without behavioral disturbance, psychotic disturbance, mood disturbance, and anxiety; I11.0 Hypertensive heart disease with heart failure; Z79.810 Long term (current) use of selective estrogen receptor modulators (SERMs); Z79.899 Other long term (current) drug therapy; Z82.49 Family history of ischemic heart disease and other diseases of the circulatory system
CPT/HCPCS: 33208; 71045; 80048; 80053; 83735; 84443; 85025; 85027; 85610; 85730; 93005; 99285; C1769; C1785; C1887; C1892; C1898; Q9967